=== PATIENT | male | born 1975 | race Caucasian/White ===

== ENCOUNTER 2016-07-19 09:03 | Emergency (ER) | payer OTHER ==
[~2016-07-19 09:03] MED LIST: CYCLOBENZAPRINE5 M1 PO; HYDROCODON-ACE1 EA16 PO; MEDROL4 M2 PO; NAPROSYN500 M1 PO; NO HOME MEDICATION XX; PERCOCET 5-3251 EACH PO; ROBAXIN-750750 M1 PO
[2016-07-19] MEDS ORDERED: METHOCARBAMOL750 M1 PO (10:36)
== END 2016-07-19 10:58 ==
LOC: EDMED 09:03
DX: S16.1XXA Strain of muscle, fascia and tendon at neck level, initial encounter (principal); S66.912A Strain of unspecified muscle, fascia and tendon at wrist and hand level, left hand, initial encounter; S66.911A Strain of unspecified muscle, fascia and tendon at wrist and hand level, right hand, initial encounter; M54.5 Low back pain; F17.200 Nicotine dependence, unspecified, uncomplicated; V49.40XA Driver injured in collision with unspecified motor vehicles in traffic accident, initial encounter; Y92.410 Unspecified street and highway as the place of occurrence of the external cause